=== PATIENT | female | born 1955 | race Caucasian/White ===

== ENCOUNTER 2018-03-18 14:54 | Outpatient (CLI) | payer OTHER | END 2018-03-18 23:59 | disposition home or self-care (01) | LOC: CFH 14:54 | PROVIDERS: ATTEND Orthopaedic Surgery | DX: S43.491A Other sprain of right shoulder joint, initial encounter (principal); X58.XXXA Exposure to other specified factors, initial encounter; Y93.89 Activity, other specified; Y92.89 Other specified places as the place of occurrence of the external cause; Y99.8 Other external cause status ==

== ENCOUNTER 2018-05-24 13:49 | Outpatient (CLI) | payer OTHER | END 2018-05-24 23:59 | disposition home or self-care (01) | LOC: CFH 13:49 | PROVIDERS: ATTEND Family Medicine | DX: K57.30 Diverticulosis of large intestine without perforation or abscess without bleeding (principal); K76.89 Other specified diseases of liver | CPT/HCPCS: 74176 ==